=== PATIENT | male | born 1995 ===

== ENCOUNTER → 2024-06-21 | Outpatient (CLI) | payer MEDICAID ==
[~2024-06-21] VITALS: Ht 177.8 cm; Wt 108.9 kg
[~2024-06-21] MED LIST: ADENOSINE 90 MG/30 ML INJ IV ONE; ADENOSINE 91 MG in GIVE UN-DILUTED 0 ML IV ONE
== END | disposition home or self-care (01) ==
LOC: Rad HDHVI 13:56
PROVIDERS: ATTEND Internal Medicine Cardiovascular Disease
DX: I10 Essential (primary) hypertension (principal); E78.5 Hyperlipidemia, unspecified; F17.210 Nicotine dependence, cigarettes, uncomplicated
CPT/HCPCS: 78452; 93005; 96374; A9500; J0153; 96375